=== PATIENT | female | born 1990 | race Caucasian/White ===

== ENCOUNTER 2018-12-04 08:18 | Emergency (ER) | payer OTHER ==
[2018-12-04] MEDS: LORATADINE 10 MG TAB PO (09:25)
[2018-12-04] MEDS: predniSONE 20 MG TAB PO (09:25)
== END 2018-12-04 09:28 | disposition home or self-care (01) ==
LOC: FTE 08:18
DX: S60.861A Insect bite (nonvenomous) of right wrist, initial encounter (principal); W57.XXXA Bitten or stung by nonvenomous insect and other nonvenomous arthropods, initial encounter; Y92.9 Unspecified place or not applicable
CPT/HCPCS: 99283